=== PATIENT | male | born 1980 | race Caucasian/White ===

== ENCOUNTER 2019-03-26 14:28 | Outpatient (CLI) | payer OTHER ==
[2019-03-26 15:34] VITALS: BP 100/60
--- NOTE | 2019-03-26 15:34 | SLEEP CARE CONSULTATION ---
Information from patient questionnaire entered by Sendy Rangel. I have reviewed and concur with the information entered by Sendy Rangel. This document represents the service I personally performed and the decisions made by me, David Pelaez MD, [facility]. History of Present Illness Reason for Visit: New patient Chief Complaint: reports: Unrefreshed sleep, Snoring, Excessive daytime sleepiness, Fatigue Duration of Symptoms: about 2 years Usual bedtime: 11pm-12am Time it takes to fall asleep: instant Snores at night: Yes (occasionally) Observed to quit breathing while asleep: No Sleeps alone due to snoring: No Number of times waking at night: 0 Toss, Turn, or Twitch while sleeping: Yes Recalls having dreams: Yes Usually gets out of bed at: 6:30 am for work, 9-10am when off Feels refreshed in the morning: No Morning headache: Yes Sleepy or fatigued during the day: Yes Ever fallen asleep while driving: Yes Takes day naps: Yes Dreams during day naps: No Prior sleep studies: No Additional HPI information: I had the pleasure of seeing Mr. Viera along with today regarding the possibility of him having a sleep disorder. As you know, he is a 38 year old gentleman who complains of excessive daytime sleepiness. The patient tells me that he normally goes to bed around 11 pm - midnight, and it takes him approximately just a few seconds to fall asleep. He has been told that he snores at night. He has never been observed to stop breathing in his sleep. His sleeps in the same bed. He can recall waking up on the average of 0 times during the night. He has never awakened because of his own snoring, choking, or having to gasp for air. There is not a lot of tossing and turning in his sleep. No somniloquy (sleep talking) or somnambulism (sleep walking). Generally there is no recollection of dreams. In the morning he usually gets up out of the bed around 6:30 a.m. (9 10 am on weekends) not feeling refreshed nor rested. He occasionally has a morning headache that goes away quickly. During the day he complains of feeling sleepy and fatigued. His score on [place] Sleepiness Scale is 14 out of 24. He has fallen asleep while driving and has gone out of the eyad. He usually does not take naps during the day. He had symptoms of restless leg syndrome. He reports having impaired concentration during the day. 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 Patient is and lives in [place]. Have you smoked in the past 12 months: No Quit date: 2010 Alcohol use: Yes Alcohol amount and frequency: seldom Caffeine use: Yes Family History Family history of sleep disordered breathing: No Allergies and Home Medications Drug allergies reviewed: Yes Home medication list reviewed: Yes Review of Systems Cardiovascular: denies: high blood pressure, palpitations, chest pain, irregular heart rate or pulse, leg or foot swelling, have to sleep sitting up, other Respiratory: denies: shortness of breath, wheeze, sputum production, chronic cough, other Gastrointestinal: denies: heartburn, difficulty swallowing, nausea, vomitting, diarrhea, abdominal pain, other Urinary: denies: incontinence, frequency, urgency, impotence, other Neurological: denies: headaches, seizure, head trauma, disorientation, speech dysfunction, gait or balance problems, fainting or unconsciousness, other Psychiatric: denies: Attention Deficit Hyperactivity, anxiety, depression, mood disorder, claustrophobia, other Ear/Nose/Throat: reports: tonsillectomy, wisdom teeth removed Endocrine: reports: sluggishness Musculoskeletal: reports: back pain Immunologic: denies: sneezing, rash, itching, allergies to food or environment, other Physical Exam Vital signs obtained and entered by: Dr. Pelaez Blood Pressure: 100/60 Cuff size: long Heart Rate: 60 O2 Saturation: 97 Height: 5 ft 8 in Weight (kg): 204 lb Body Mass Index: 31.0 BMI Classification: Class 1 Mood/affect: normal HEENT: No craniofacial malformation Nostrils: patent to airflow Turbinates: normal Septum: midline Mouth and throat: narrow oropharynx Soft palate: long Hard palate: normal Uvula: normal Uvula visualization: 50% Mallampati Class II Tongue: normal in size Tonsils: absent bilaterally Chin and jaw: normal size and position Neck: normal w/o lymphadenopathy or thyromegaly Heart: regular rate and rhythm Lungs: clear bilaterally Abdomen: soft, non-tender Extremities: no edema or clubbing Neurologic: intact, no focal deficits Impression and Plan IMPRESSION: 1. Obstructive Sleep Apnea-Hypopnea Syndrome, as suggested by history of snoring, unrefreshed sleep, morning headache, cognitive impairment, and daytime hypersomnolence. Narrow oropharynx and obesity are common predisposing factors for obstructive sleep apnea-hypopnea syndrome. Pathophysiology of sleep- disordered breathing was discussed. I recommend proceeding to polysomnography to confirm the diagnosis and to assess severity. If he has significant sleep disordered breathing, a manual CPAP titration study will also be performed to find the optimal treatment pressure. I informed the patient of what the sleep studies involve and after some discussion, he agreed to proceed. Plan: 1. Schedule polysomnography and return in 1 to 2 weeks after the study to discuss result and initiate therapy. 2. Avoid long distance driving or when feeling sleepy. 3. Avoid alcohol, sedative and muscle relaxant around bedtime. 4. Attempt to lose weight. 5. Allow at least 8 hours for sleeping at night because some of his excessive daytime sleepiness could very well be from insufficient night sleep. I spent 100% of this 15 minute visit face to face with the patient with greater than 50% of this was spent time counseling the patient and coordination of care.
== END 2019-03-26 14:29 | disposition home or self-care (01) ==
LOC: SC 14:28
PROVIDERS: ATTEND Internal Medicine Pulmonary Disease
DX: R06.83 Snoring (principal); G47.8 Other sleep disorders; R51 Headache; R41.89 Other symptoms and signs involving cognitive functions and awareness; G47.10 Hypersomnia, unspecified
CPT/HCPCS: 99203; 99212

== ENCOUNTER 2019-03-27 19:19 | Outpatient (CLI) | payer OTHER | END 2019-03-27 19:20 | disposition home or self-care (01) | LOC: SC 19:19 | PROVIDERS: ATTEND Internal Medicine Pulmonary Disease | DX: G47.33 Obstructive sleep apnea (adult) (pediatric) (principal); G47.61 Periodic limb movement disorder | CPT/HCPCS: 95810 ==

== ENCOUNTER 2019-04-02 08:45 | Outpatient (CLI) | payer OTHER ==
--- NOTE | 2019-04-02 13:06 | SLEEP CARE CONSULTATION ---
Information from patient questionnaire entered by Sendy Rangel. I have reviewed and concur with the information entered by Sendy Rangel. This document represents the service I personally performed and the decisions made by me, David Pelaez MD, [facility]. History of Present Illness Initial [place] Sleepiness Scale score: 14 Current [place] Sleepiness Scale score: 16 Additional HPI information: HPI: Mr. Viera returned for follow up of the sleep study he had on 03/27/2019. The polysomnography showed that the patient had normal sleep efficiency. The sleep architecture was relatively normal as well considering the first night effect. Respiratory monitoring showed mild obstructive sleep apnea-hypopnea (AHI = 6.6) associated with oxyhemoglobin desaturation and mild hypoxia (ronald oxygen saturation of 86%) but not sleep fragmentation. The respiratory events occurred almost exclusively during supine sleep (supine AHI = 11.0; non-supine = 2.22). Snore was light to loud in intensity. There was mild periodic leg movement of sl eep not associated with sleep fragmentation. Cardiac rhythm was normal sinus rhythm without significant arrhythmia. No abnormal behavior (parasomnia) observed during the night. The patient was informed of these findings. I explained to him the pathophysiology behind obstructive sleep apnea. We then spent quite a bit of time discussing different treatment options. For mild obstructive sleep apnea, surgery and oral appliance are alternatives to nasal CPAP therapy but in moderate or severe cases, nasal CPAP is the most effective and reliable treatment. Weight loss in an obese individual is strongly recommended. After some discussion, he opted to go with the nasal CPAP therapy. I explained to him how CPAP machine works and what to expect when using the machine. He is encouraged to use CPAP every night especially in the first 2 to 3 nights in order to get used to it. He should call his CPAP supplier or me to discuss any mechanical problem that may occur. If he snores or feels like he is not getting enough air from the machine, he should notify me and I will increase the pressure. Allergies and Home Medications Drug allergies reviewed: Yes Home medication list reviewed: Yes Physical Exam Weight (kg): 204 lb Impression and Plan HPI: Mr. Viera returned for follow up of the sleep study he had on 03/27/2019. The polysomnography showed that the patient had normal sleep efficiency. The sleep architecture was relatively normal as well considering the first night effect. Respiratory monitoring showed mild obstructive sleep apnea-hypopnea (AHI = 6.6) associated with oxyhemoglobin desaturation and mild hypoxia (ronald oxygen saturation of 86%) but not sleep fragmentation. The respiratory events occurred almost exclusively during supine sleep (supine AHI = 11.0; non-supine = 2.22). Snore was light to loud in intensity. There was mild periodic leg movement of sleep not associated with sleep fragmentation. Cardiac rhythm was normal sinus rhythm without significant arrhythmia. No abnormal behavior (parasomnia) observed during the night. The patient was informed of these findings. I explained to him the pathophysiology behind obstructive sleep apnea. We then spent quite a bit of time discussing different treatment options. For mild obstructive sleep apnea, surgery and oral appliance are alternatives to nasal CPAP therapy but in moderate or severe cases, nasal CPAP is the most effective and reliable treatment. Weight loss in an obese individual is strongly recommended. After some discussion, he opted to go with the nasal CPAP therapy. I explained to him how CPAP machine works and what to expect when using the machine. He is encouraged to use CPAP every night especially in the first 2 to 3 nights in order to get used to it. He should call his CPAP supplier or me to discuss any mechanical problem that may occur. If he snores or feels like he is not getting enough air from the machine, he should notify me and I will increase the pressure. I spent 100% of this 15minute visit face to face with the patient with greater than 50% of this was spent time counseling the patient and coordination of care.
== END 2019-04-02 08:46 | disposition home or self-care (01) ==
LOC: SC 08:45
PROVIDERS: ATTEND Internal Medicine Pulmonary Disease
DX: G47.33 Obstructive sleep apnea (adult) (pediatric) (principal)
CPT/HCPCS: 99212; 99214

== ENCOUNTER 2019-07-30 14:05 | Outpatient (CLI) | payer OTHER ==
--- NOTE | 2019-07-30 16:14 | SLEEP CARE CONSULTATION ---
Information from patient questionnaire entered by Hillary Fatima. I have reviewed and concur with the information entered by Hillary Fatima. This document represents the service I personally performed and the decisions made by me, David Pelaez MD, [facility]. History of Present Illness Previous diagnosis: Mild, Obstructive Sleep Apnea-Hypopnea Syndrome AHI: 6.6 Reason for follow up: first compliance Equipment type: CPAP Equipment obtained from: [employer] Prior sleep studies: Yes HPI additional information: HPI: Mr. Viera returned today for follow up of nasal CPAP therapy. He was diagnosed to have mild obstructive sleep apnea-hypopnea syndrome. The patient wears a nasal mask. He reports using the device nightly and all through the night. The compliance report shows usage in 30 nights out of the past 30 nights, averaging 5.7 hours a night. The > 4 hour compliance rate for the past 30 days is 90%. He complained of no particular problem with the device such as soreness on the face, dry nose, epistaxis, nasal congestion or headache. He thinks that the pressure of 5 - 10 is comfortable. On the CPAP therapy he notices improvement in his sleep quality, and that he wakes up feeling fresher in the morning and more awake/alert during the day. His [place] Sleepiness Scale score is 2. His notices no snore at all. The average residual AHI is 5.1; and average time in large leak per day is 40 minutes The 90th percentile pressure is 7.9 cmH2O. CPAP Compliance Data - Data Reviewed with Patient Average duration of nightly device use: 5h 42s Compliance rate %: 90 Current pressure setting (cmH2O): 5-10 Humidity settin Heated hose settin Average residual AHI: 5.1 Average large leak: 40m 14s Subjective Patient concerns: reports: nasal congestion, dry mouth, nose, throat, epistaxis Current pressure setting perceived as: comfortable Initial [place] Sleepiness Scale score: 14 Current [place] Sleepiness Scale score: 2 Allergies and Home Medications Drug allergies reviewed: Yes Home medication list reviewed: Yes Review of Systems Review of systems same as previous: Yes Physical Exam Weight: 204 lb Impression and Plan IMPRESSION: 1. Obstructive Sleep Apnea-Hypopnea Syndrome, mild, with the patient doing well on nasal CPAP therapy. He has excellent compliance and significant clinical improvement. The current pressure appears slightly ineffective but comfortable. His mask does not fit too well and it shoots air at his . Overall, he is very satisfied with treatment and plans to continue with it long-term. I will raise the pressure slightly. PLAN: 1. Set the autoCPAP at 7 - 10 cmH2O. 2. Try to lose weight 3. Try ResMed N30i mask. Prescription sent to [facility]. 4. Return in one year for follow up or earlier if there is any problem with the treatment. I spent 100% of this visit face to face with the patient with greater than 50% of this was spent time counseling the patient and coordination of care.
== END 2019-07-30 14:06 | disposition home or self-care (01) ==
LOC: SC 14:05
PROVIDERS: ATTEND Internal Medicine Pulmonary Disease
DX: G47.33 Obstructive sleep apnea (adult) (pediatric) (principal)
CPT/HCPCS: 99212; 99213

== ENCOUNTER 2020-09-03 15:45 | Outpatient (CLI) | payer OTHER ==
--- NOTE | 2020-09-03 16:14 | SLEEP CARE CONSULTATION ---
Information from patient questionnaire entered by Arabella Nicole. I have reviewed and concur with the information entered by Arabella Nicole. This document represents the service I personally performed and the decisions made by , Juana Verma ARNP. History of Present Illness Service Date and Time: 09/03/2020 1545 Previous diagnosis: Mild, Obstructive Sleep Apnea-Hypopnea Syndrome AHI: 6.6 Reason for follow up: annual (Last seen 07/2019 - mask issues) Equipment type: CPAP Equipment obtained from: [facility] (getting supplies as needed) Mask style: Nasal Backup mask available: No (will need to keep old mask when replaced) Last cushion change: 1 year Prior sleep studies: Yes Year and Where: 2019 [facility] Type of Sleep Study: Polysomnography HPI additional information: TIMOTEO FRANKLIN was diagnosed to have mild, AHI 6.6, obstructive sleep apnea- hypopnea syndrome and returned today for CPAP therapy annual with mask issues follow-up. CPAP Compliance Data - Data Reviewed with Patient Average duration of nightly device use: 4 h 8 min Compliance rate %: 23.9 Current pressure setting (cmH2O): 7-10 Humidity settin Heated hose settin Average residual AHI: 3.6 Average large leak: 24 min 5 sec Subjective Missed days of use due to: reports: mask issues, other (power outage) Patient concerns: reports: mask discomfort (will come off while sleeping and move to eye, etc), dry mouth, nose, throat, other (Mask comes undone while sleeping). denies: aerophagia, air blowing in eyes, mask leak noise, condensation in mask/hose, nasal congestion, epistaxis Observed to snore while using device: No Current pressure setting perceived as: comfortable On therapy, patient: reports: sleeping better, awakening more refreshed, being more awake and alert during the day, more rested overall. denies: drowsiness while driving Initial [place] Sleepiness Scale score: 14 (in 2019) Current [place] Sleepiness Scale score: 2 Allergies and Home Medications Home medication list reviewed: Yes (no changes) Review of Systems Review of systems same as previous: Yes (no changes) Physical Exam Heart Rate: 66 O2 Saturation: 98 Height: 5 ft 8 in Weight: 211 lb Body Mass Index: 32.1 BMI Classification: Obese Impression and Plan 1. Obstructive Sleep Apnea-Hypopnea Syndrome, mild, with poor treatment compliance and good apnea control. On CPAP therapy, the patient has better sleep quality and is more rested overall. He has been having major mask issues. He was supposed to get a different mask but there was a disconnect and he was unable to try a new mask. He has been using the same mask now for about a year and the headgear is so stretched out it will come off during the night. He would like to try a Dreamwear nasal Wisp mask. He had not been using the machine due to not being able to keep the mask on and his compliance has come down. I will write for a mask refitting and have him follow up in 2 months to recheck his compliance. Patient's apnea severity and rationale for treatment to reduce apnea, improve sleep quality and reduce cardiovascular and cerebrovascular events was reviewed. * Continue auto CPAP pressure at 7-10 cmH2O * mask refitting for Dream Wisp nasal mask * Notify me if snoring with mask or feeling that the pressure is too much or too little * Attempt to lose weight * Call this office if any problems using CPAP * Return for follow up in 2 months, or sooner if concerns arise Counseling Topics: Spare mask, Weight loss health impact Visit Type: In Office Time Spent with Patient (minutes): 20 Provider Statement: I spent 100% of the Face to Face Visit with the patient with greater than 50% spent counseling the patient and coordination of care.
== END 2020-09-03 15:46 | disposition home or self-care (01) ==
LOC: SC 15:45
PROVIDERS: ATTEND Nurse Practitioner Family
DX: G47.33 Obstructive sleep apnea (adult) (pediatric) (principal); E66.9 Obesity, unspecified; Z68.32 Body mass index [BMI] 32.0-32.9, adult
CPT/HCPCS: 99212; 99213

== ENCOUNTER 2020-11-04 15:40 | Outpatient (CLI) | payer OTHER ==
--- NOTE | 2020-11-04 16:18 | SLEEP CARE CONSULTATION ---
Information from patient questionnaire entered by Arabella Nicole. I have reviewed and concur with the information entered by Arabella Nicole. This document represents the service I personally performed and the decisions made by me, Juana Verma ARNP. History of Present Illness Service Date and Time: 11/04/2020 1540 Previous diagnosis: Mild, Obstructive Sleep Apnea-Hypopnea Syndrome AHI: 6.6 Reason for follow up: other (2-month followup) Equipment type: CPAP Equipment obtained from: [employer] (getting supplies as needed) Mask style: Nasal (over the nose) Mask brand: Respironics (Dreamwear Wisp) Backup mask available: Yes (other mask) Last cushion change: 1.5 month Prior sleep studies: Yes Year and Where: 2018 [facility] Type of Sleep Study: Polysomnography HPI additional information: TIMOTEO FRANKLIN was diagnosed to have mild, AHI 6.6, obstructive sleep apnea- hypopnea syndrome and returned today for CPAP therapy two month follow-up. CPAP Compliance Data - Data Reviewed with Patient Average duration of nightly device use: 5 h 8 min Compliance rate %: 73.3 Current pressure setting (cmH2O): 7-10 Humidity settin Heated hose settin Average residual AHI: 2.4 Average large leak: 14 min 45 sec Subjective Missed days of use due to: reports: family emergency, mask issues, illness Patient concerns: reports: nasal congestion, dry mouth, nose, throat. denies: aerophagia, mask discomfort, air blowing in eyes, mask leak noise, condensation in mask/hose, epistaxis, other Observed to snore while using device: No Current pressure setting perceived as: comfortable On therapy, patient: reports: sleeping better, awakening more refreshed, being more awake and alert during the day, more rested overall. denies: drowsiness while driving Initial [place] Sleepiness Scale score: 14 (in 2019) Current [place] Sleepiness Scale score: 2 Allergies and Home Medications Home medication list reviewed: Yes (no new meds) Review of Systems Review of systems same as previous: Yes (no changes) Physical Exam Heart Rate: 75 O2 Saturation: 98 Height: 5 ft 8 in Weight: 212 lb (with boots) Body Mass Index: 32.2 BMI Classification: Obese Impression and Plan 1. Obstructive Sleep Apnea-Hypopnea Syndrome, mild, with good treatment compliance and good apnea control. On CPAP therapy, the patient has better sleep quality and is more rested overall. He has been getting some nasal congestion and dry mouth. His heated hose is at 5 and the humidity is also at 5. I advised him to reduce the heated hose to 4 to see if this will help reduce nasal congestion and oral dryness. He voiced understanding. He states he gets out of the in February and will be moving to [place]. He will have to establish with a sleep provider once he moves for continued care of his CPAP. Patient's apnea severity and rationale for treatment to reduce apnea, improve sleep quality and reduce cardiovascular and cerebrovascular events was reviewed. * Continue autoCPAP pressure at 7-10 cmH2O * Notify me if snoring with mask or feeling that the pressure is too much or too little * Attempt to lose weight * Call this office if any problems using CPAP * Return for follow up in 1 year, or sooner if concerns arise Counseling Topics: Spare mask, Weight loss health impact Visit Type: In Office Time Spent with Patient (minutes): 15 Provider Statement: I spent 100% of the Face to Face Visit with the patient with greater than 50% spent counseling the patient and coordination of care.
== END 2020-11-04 15:41 | disposition home or self-care (01) ==
LOC: SC 15:40
PROVIDERS: ATTEND Nurse Practitioner Family
DX: G47.33 Obstructive sleep apnea (adult) (pediatric) (principal); E66.9 Obesity, unspecified; Z68.32 Body mass index [BMI] 32.0-32.9, adult
CPT/HCPCS: 99212

== ENCOUNTER 2021-03-29 16:46 | Emergency (ER) | payer OTHER ==
--- NOTE | 2021-03-29 17:36 | ED Physician Documentation ---
History of Present Illness - Stated complaint Stated Complaint: MALE ,BACK PX - Chief complaint Chief Complaint: Abd Pain - History obtained from History obtained from: Patient - History of Present Illness Timing: How many weeks ago (2) Pain level max: 6 Pain level now: 5 - Additonal information Additional information: Patient is a 40-year-old male who presents to the emergency department with left testicular pain ongoing for the past 2 weeks intermittently. He states he has dysuria as well. No change in sexual partners. He states he has only had intercourse with his 2-3 times in the past several months. He states that he does have pain at the end of urination and what appears to be ejaculate at the end of his urination as well. He denies any trauma. Review of Systems Constitutional: denies: Fever, Chills GI: denies: Vomiting : reports: Dysuria. denies: Frequency, Hesitancy, Incontinent, Now EGA Skin: denies: Rash Musculoskeletal: denies: Neck pain, Back pain Neurologic: denies: Headache PD PAST MEDICAL HISTORY - Past Medical History Past Medical History: No - Past Surgical History Past Surgical History: No - Present Medications Home Medications: Ambulatory Orders Medication Instructions Recorded Confirmed Doxycycline Monohydrate 100 mg PO BID #20 cap 03/29/21 - Allergies Allergies/Adverse Reactions: Allergies Allergy/AdvReac Type Severity Reaction Status Date / Time No Known Drug Allergies Allergy Verified 03/29/21 17:08 - Living Situation Living Situation: reports: With family Living Arrangement: reports: At home - Social History Does the pt have substance abuse?: No - Family History Family history: reports: Non contributory PD ED PE NORMAL - Vitals Vital signs reviewed: Yes - General General: Alert and oriented X 3, No acute distress, Well developed/nourished - HEENT HEENT: PERRL, Moist mucous membranes - Neck Neck: Supple, no meningeal sign - Cardiac Cardiac: RRR, Strong equal pulses - Respiratory Respiratory: No respiratory distress, Clear bilaterally - Abdomen Abdomen: Soft, Non tender, Non distended - Male Male : Other (mild TTP over the L epididymis. no scrotal swelling. normal testicular lie. no discharge. no hernia.) - Derm Derm: Warm and dry - Neuro Neuro: Alert and oriented X 3 - Psych Psych: Normal mood, Normal affect Results - Vitals Vitals: Vital Signs - 24 hr 09/12/21 09/12/21 09/12/21 17:04 18:56 19:59 Temperature 36.4 C L 36.9 C 36.8 C Heart Rate 81 65 62 Respiratory 16 20 19 Rate Blood Pressure 142/90 H 126/81 H 138/91 H O2 Saturation 98 97 98 Oxygen O2 Source Room air - Labs Labs: Laboratory Tests 03/29/21 03/29/21 17:28 17:28 Urine Color YELLOW Urine Clarity CLEAR Urine pH 6.0 Ur Specific [place] >=1.030 H Urine Protein NEGATIVE Urine Glucose (UA) NEGATIVE Urine Ketones NEGATIVE Urine Occult Blood NEGATIVE Urine Nitrite NEGATIVE Urine Bilirubin NEGATIVE Urine Urobilinogen 0.2 (NORMAL) Ur Leukocyte Esterase NEGATIVE Ur Microscopic Review NOT INDICATED Urine Culture Comments NOT INDICATED Chlam trachomat DNA PCR NEGATIVE N.gonorrhoeae DNA (PCR) NEGATIVE T. vaginalis (PCR) TNP - Rads (name of study) testicular US Radiology: Final report received, EMP read contemporaneously, See rad report PD MEDICAL DECISION MAKING - ED course Complexity details: reviewed results, re-evaluated patient, considered diff erential, d/w patient ED course: Patient has a left-sided varicocele on ultrasound. Otherwise no acute abnormalities on ultrasound. Negative urinalysis. Unclear etiology of his symptoms. Gonorrhea and Chlamydia testing is pending, we did discuss treating with antibiotics to see if this clears, given Rocephin and will place on doxycycline. Patient counseled regarding signs and symptoms for which I believe and urgent re-evaluation would be necessary. Patient with good understanding of and agreement to plan and is comfortable going home at this time This document was made in part using voice recognition software. While efforts are made to proofread this document, sound alike and grammatical errors may occur. Departure - Departure Disposition: 01 Home, Self Care Clinical Impression: Testicular pain, left, Varicocele Condition: Good Instructions: ED Testicular Pain [facility] Follow-Up: your,doctor in 1 week [Other] Prescriptions: Doxycycline Monohydrate 100 mg PO BID #20 cap Comments: Take all antibiotics until gone. Return if you worsen. Follow-up with your doctor for further care. You do have a varicocele on your ultrasound today. This is left-sided. You can follow-up with your doctor for this. Your prescription was sent to the [facility] [place] Discharge Date/Time: 03/29/21 20:15
[2021-03-29 17:48] LABS: BILIRUBIN,URINE NEGATIVE (NEGATIVE); GLUCOSE, URINE (UA) NEGATIVE (NEGATIVE); KETONES,URINE (UA) NEGATIVE (NEGATIVE); LEUKOCYTE ESTERASE, URINE NEGATIVE (NEGATIVE); NITRITE,URINE NEGATIVE (NEGATIVE); OCCULT BLOOD,URINE NEGATIVE (NEGATIVE); PROTEIN,URINE NEGATIVE (NEGATIVE); UROBILINOGEN,URINE 0.2 (NORMAL) E.U./dL (NORMAL)
[2021-03-29 17:49] LABS: CLARITY,URINE CLEAR (CLEAR)
--- NOTE | 2021-03-29 18:28 | Ultrasound Report ---
PROCEDURE: Testicle w/Doppler INDICATIONS: testicular pain/swelling TECHNIQUE: Real-time scanning was performed of the scrotum and testicles, with image documentation. Color and p ulse Doppler interrogation was performed of both testicles. COMPARISON: None. FINDINGS: Right: Testicle is normal in size at 4.1 x 2.4 x 2.7 cm, and homogenous in echotexture. Epididymis is normal in overall size and morphology. No hydrocele or varicoceles. Overlying scrotal skin is no rmal in thickness. Left: Testicle is normal in size at 4.6 x 2.2 x 2.5 cm, and homogeneous in echotexture. Epididymis is normal in overall size and morphology. No hydrocele. Left-sided varicocele is present.. Overlyin g scrotal skin is normal in thickness. Echogenic foci within the left testicle. Doppler: Color and pulse Doppler demonstrate normal and symmetric arterial flow in both testicles. IMPRESSION: Left-sided varicocele. Reviewed by: Moncho Judd MD on 03/29/2021 6:27 PM PDT Approved by: Moncho Judd MD on 03/29/2021 6:27 PM PDT Station ID: [id number]
[2021-03-29] MEDS ORDERED: LIDOCAINE 1% 2 ML VIAL MC ONE (19:09)
[2021-03-29] MEDS ORDERED: cefTRIAXone 1 GM VIAL IM STA (19:09)
[2021-03-29] MEDS ORDERED: DOXYCYCLINE 100 MG TABLET PO STA (19:09)
[2021-03-29] MEDS ORDERED: DOXYCYCLINE 100 MG TABLET PO ONE (19:33)
[2021-03-29] MEDS ORDERED: cefTRIAXone 2 GM VIAL ONE (19:33)
[2021-03-29] MEDS ORDERED: LIDOCAINE 1% 2 ML VIAL ONE (19:33)
[2021-03-29 20:00] VITALS: BP 138/91
[2021-03-29 20:17] LABS: CHLAMYDIA TRACHOMATIS DNA NEGATIVE (NEGATIVE); NEISSERIA GONORRHOEAE DNA NEGATIVE (NEGATIVE)
== END 2021-03-29 20:15 | disposition home or self-care (01) ==
LOC: ED 16:46
DX: I86.1 Scrotal varices (principal)
CPT/HCPCS: 76870; 81003; 87491; 87591; 93975; 99283; 99284; A9270; 81001; 87086; 87661